=== PATIENT | female | born 1940 | race Caucasian/White ===

== ENCOUNTER 2021-12-16 13:10 | Outpatient (CLI) | payer MEDICARE, SELFPAY ==
--- NOTE | 2021-12-16 13:25 | MM_ITS ---
WS: [email or web address] BILATERAL 3D TOMOSYNTHESIS DIGITAL SCREENING MAMMOGRAPHY WITH CAD CLINICAL INFORMATION: SCREEN HISTORY: Screening mammogram. No current complaints. COMPARISON: TECHNIQUE: Bilateral CC and MLO views. FINDINGS: The breasts are composed of heterogeneous fibroglandular density tissue, which can limit the detectio n of small underlying mass lesions. Punctate and lucent centered calcifications. Clustered calcificat ions upper outer LEFT breast progressed compared to 2017. Recommend spot magnification views for furt her evaluation. e No suspicious abnormalities RIGHT breast. MM/[place] [id number] IMPRESSION: BI-RADS: 0-Incomplete: Need additional imaging evaluation FOLLOW UP: Need Additional Imaging Recommend spot magnification views of the calcifications upper outer LEFT breas t
== END 2021-12-16 13:11 | disposition home or self-care (01) ==
LOC: RAD 13:11
PROVIDERS: PCP Family Medicine; Visit Provider Nurse Practitioner Family
DX: Z12.31 Encounter for screening mammogram for malignant neoplasm of breast (principal)
CPT/HCPCS: 77063; 77067

== ENCOUNTER 2022-01-15 14:07 | Outpatient (CLI) | payer MEDICARE, SELFPAY ==
--- NOTE | 2022-01-15 14:30 | MM_ITS ---
WS: [email or web address] LEFT 3D TOMOSYNTHESIS DIGITAL MAMMOGRAPHY WITH CAD CLINICAL INFORMATION: ABNORMAL MAMMO COMPARISON: December 16, 2021 TECHNIQUE: 3 views of the left breast were obtained. FINDINGS: Scattered fibroglandular densities of the left breast. Spot magnification views of the clustered calc ifications upper outer LEFT breast. Spot magnification views demonstrate heterogeneously clustered ca lcifications some of which have a suspicious appearance. Recommend further evaluation with stereotact ic guided biopsy. MM/[place] [id number] IMPRESSION: BI-RADS: 4-Suspicious Finding-Biopsy Should Be Considered FOLLOW UP: Stereotactic Biopsy Recommended
--- NOTE | 2022-01-15 14:34 | XR_ITS ---
WS: [email or web address] DEXA (DUAL ENERGY X-RAY ABSORPTIOMETRY) Bone mineral density was performed using a BIO[employer] machine. HISTORY: POSTMENOPAUSAL COMPARISON: 07/19/2018 Lumbar spine BMD (L1-L4): 1.258 g/cm2 T score: 0.6 Z score: 2.7 Total hip BMD: Left: 0.785 g/cm2. T score: -1.8 Z score: 0.5 Right: 0.705 g/cm2. T score: -2.4 Z score: -0.2 10 year probability of a major osteoporotic fracture is 38.3%. Compared to the prior study from 07/19/2018. Lumbar spine bone mineral density has increased by 2.4%. Bilateral hips bone mineral density has decrease by 5.1%. XR/XR DEXA axial skeleton* [id number] IMPRESSION: OSTEOPENIA based upon the WHO classification for females. Patient is at significant increased risk for fracture. Bone mineral density within the hips has significantly decreased since 2019. Bone mineral density within the lumbar spine has increased since the prior stud y but this may be erroneous and related to sclerosis.
== END 2022-01-15 14:08 | disposition home or self-care (01) ==
LOC: RAD 14:08
PROVIDERS: PCP Family Medicine; Visit Provider Family Medicine
DX: R92.8 Other abnormal and inconclusive findings on diagnostic imaging of breast (principal); Z78.0 Asymptomatic menopausal state; M85.80 Other specified disorders of bone density and structure, unspecified site; R92.1 Mammographic calcification found on diagnostic imaging of breast
CPT/HCPCS: 77061; 77080

== ENCOUNTER 2022-02-25 11:43 | Outpatient (CLI) | payer MEDICARE, SELFPAY ==
--- NOTE | 2022-02-25 | MM_ITS ---
WS: [email or web address] STEREOTACTIC LEFT BREAST BIOPSY WITH VACUUM ASSISTANCE HISTORY: LT BREAST CALCS COMPARISON: 01/15/2022, 12/16/2021 Procedure, risks and complications were explained to the patient. Medications and prior radiographs a re reviewed. LEFT breast calcifications are located. Calcifications located near 1:00, upper outer quadrant. Calci fications are targeted in the craniocaudal projection. The skin is cleansed with ChloraPrep and anest hetized with 1% buffered lidocaine. Deeper soft tissues anesthetized with a combination of lidocaine and epinephrine. Small dermatome is made. Needle advanced into the LEFT breast. Stereotactic imaging reveals appropriate positioning adjacent calcifications. Multiple vacuum-assisted core biopsies are o btained. No complications were encountered. Post biopsy specimen radiograph reveals numerous calcifications. Biopsy clip is placed in the cavity. Post imaging reveals good placement of the clip. No migration. Pressures held for approximately 15 minutes. No bleeding. Dressing applied. Patient discharged with n o complications. There is no bleeding. With any questions or complications patient is to return. MM/[place] [id number] IMPRESSION: 1. Uncomplicated LEFT breast stereotactic biopsy. 2. Specimen contains numerous calcifications. Pathology: Benign breast tissue with stromal sclerosis, fat necrosis and fibroa denomatoid change. No hemorrhage or malignancy. RECOMMENDATION: Diagnostic LEFT mammogram follow-up 6 months.
--- NOTE | 2022-02-25 11:56 | MM_ITS ---
WS: [email or web address] STEREOTACTIC LEFT BREAST BIOPSY WITH VACUUM ASSISTANCE HISTORY: LT BREAST CALCS COMPARISON: 01/15/2022, 12/16/2021 Procedure, risks and complications were explained to the patient. Medications and prior radiographs a re reviewed. LEFT breast calcifications are located. Calcifications located near 1:00, upper outer quadrant. Calci fications are targeted in the craniocaudal projection. The skin is cleansed with ChloraPrep and anest hetized with 1% buffered lidocaine. Deeper soft tissues anesthetized with a combination of lidocaine and epinephrine. Small dermatome is made. Needle advanced into the LEFT breast. Stereotactic imaging reveals appropriate positioning adjacent calcifications. Multiple vacuum-assisted core biopsies are o btained. No complications were encountered. Post biopsy specimen radiograph reveals numerous calcifications. Biopsy clip is placed in the cavity. Post imaging reveals good placement of the clip. No migration. Pressures held for approximately 15 minutes. No bleeding. Dressing applied. Patient discharged with n o complications. There is no bleeding. With any questions or complications patient is to return. MM/[place] vac [place] [id number] IMPRESSION: 1. Uncomplicated LEFT breast stereotactic biopsy. 2. Specimen contains numerous calcifications. Pathology: Benign breast tissue with stromal sclerosis, fat necrosis and fibroa denomatoid change. No hemorrhage or malignancy. RECOMMENDATION: Diagnostic LEFT mammogram follow-up 6 months.
--- NOTE | 2022-02-25 11:56 | MM_ITS ---
WS: [email or web address] STEREOTACTIC LEFT BREAST BIOPSY WITH VACUUM ASSISTANCE HISTORY: LT BREAST CALCS COMPARISON: 01/15/2022, 12/16/2021 Procedure, risks and complications were explained to the patient. Medications and prior radiographs a re reviewed. LEFT breast calcifications are located. Calcifications located near 1:00, upper outer quadrant. Calci fications are targeted in the craniocaudal projection. The skin is cleansed with ChloraPrep and anest hetized with 1% buffered lidocaine. Deeper soft tissues anesthetized with a combination of lidocaine and epinephrine. Small dermatome is made. Needle advanced into the LEFT breast. Stereotactic imaging reveals appropriate positioning adjacent calcifications. Multiple vacuum-assisted core biopsies are o btained. No complications were encountered. Post biopsy specimen radiograph reveals numerous calcifications. Biopsy clip is placed in the cavity. Post imaging reveals good placement of the clip. No migration. Pressures held for approximately 15 minutes. No bleeding. Dressing applied. Patient discharged with n o complications. There is no bleeding. With any questions or complications patient is to return. MM/MM surgical specimen LT IMPRESSION: 1. Uncomplicated LEFT breast stereotactic biopsy. 2. Specimen contains numerous calcifications. Pathology: Benign breast tissue with stromal sclerosis, fat necrosis and fibroa denomatoid change. No hemorrhage or malignancy. RECOMMENDATION: Diagnostic LEFT mammogram follow-up 6 months.
== END 2022-02-25 11:44 | disposition home or self-care (01) ==
LOC: RAD 11:44
PROVIDERS: PCP Family Medicine; Visit Provider Family Medicine
DX: N63.21 Unspecified lump in the left breast, upper outer quadrant (principal); N64.1 Fat necrosis of breast
CPT/HCPCS: 19081; 19283; 77065; 88305; J7050

== ENCOUNTER 2022-08-25 09:03 | Outpatient (CLI) | payer MEDICARE, SELFPAY ==
--- NOTE | 2022-08-25 09:14 | MM_ITS ---
WS: [email or web address] DIAGNOSTIC LEFT DIGITAL TOMOSYNTHESIS MAMMOGRAPHY WITH CAD. HISTORY: 6[facility] POST BX COMPARISON: 02/25/2022, 01/15/2022 Technique: CC, MLO and ML views. Spot compression LEFT CC. Breast composition: There are scattered areas of fibroglandular density. Biopsy clip upper outer reilly drant LEFT breast is reidentified. There are a few adjacent residual calcifications. No increasing si ze or number of the calcifications. No adverse changes. MM/[place] [id number] IMPRESSION: BI-RADS: 2-Benign FOLLOW UP: 1 Year Follow-up Return to annual screening mammography.
== END 2022-08-25 09:04 | disposition home or self-care (01) ==
PROVIDERS: PCP Family Medicine; Visit Provider Family Medicine
DX: N63.21 Unspecified lump in the left breast, upper outer quadrant (principal)
CPT/HCPCS: 77061; G0279